=== PATIENT | female | born 1935 | race African-American/Black ===

== ENCOUNTER 2017-06-30 16:41 | Emergency (ER) | payer MEDICARE, BC ==
[2017-06-30] MEDS ORDERED: NORMAL SALINE 1000 ML 500 ML IV ONE (19:13)
--- NOTE | 2017-06-30 19:30 | ER Document Report ---
ED Blood Sugar Problem - General Mode of Arrival: Ambulatory Information source: Patient TRAVEL OUTSIDE OF THE [place] IN LAST 30 DAYS: No <CAROL ANN CERVANTES - Last Filed: 06/30/17 21:22> <JUANRLOANDO Jordan - Last Filed: 06/30/17 21:29> - General Chief Complaint: High Blood Sugar Stated Complaint: BLOOD SUGAR ISSUES Time Seen by Provider: 06/30/17 18:59 Notes: Patient is an 82 year old female with a history of diabetes was sent to the emergency room by her PCP due to high blood sugar. Patient states her PCP increased her Januvia today but states she has been unable to take it. Patient states she has been recently having chills and just recently got over the flu. At bedside patients blood glucose level was 407. (CAROL ANN CERVANTES) - Related Data Allergies/Adverse Reactions: Influenza Virus Vaccines [Influenza Virus Vaccine] Adverse Reaction (Verified 15:17) Past Medical History - General Information source: Patient - Social History Smoking Status: Never Smoker Chew tobacco use (# tins/day): No Frequency of alcohol use: None Drug Abuse: None Family History: Reviewed & Not Pertinent Patient has suicidal ideation: No Patient has homicidal ideation: No - Past Medical History Cardiac Medical History: Reports: Hx Hypertension - MEDICATIONS UPDATED Denies: Hx Heart Attack Pulmonary Medical History: Denies: Hx Asthma Neurological Medical History: Denies: Hx Cerebrovascular Accident, Hx Seizures Endocrine Medical History: Reports: Hx Diabetes Mellitus Type 2 Renal/ Medical History: Denies: Hx Peritoneal Dialysis GI Medical History: Denies: Hx Hepatitis, Hx Hiatal Hernia, Hx Ulcer Infectious Medical History: Denies: Hx Hepatitis Past Surgical History: Reports: Hx Tubal Ligation. Denies: Hx Hysterectomy, Hx Mastectomy, Hx Open Heart Surgery, Hx Pacemaker <CAROL ANN CERVANTES - Last Filed: 06/30/17 21:22> Review of Systems - Review of Systems Constitutional: See HPI, Chills EENT: No symptoms reported Cardiovascular: No symptoms reported Respiratory: No symptoms reported Gastrointestinal: No symptoms reported Genitourinary: No symptoms reported Female Genitourinary: No symptoms reported Musculoskeletal: No symptoms reported Skin: No symptoms reported Hematologic/Lymphatic: No symptoms reported Neurological/Psychological: No symptoms reported -: Yes All other systems reviewed and negative <CAROL ANN CERVANTES - Last Filed: 06/30/17 21:22> Physical Exam <CAROL ANN CERVANTES - Last Filed: 06/30/17 21:22> <ROLANDO MARTINEZ - Last Filed: 06/30/17 21:29> - Vital signs Vitals: Temp Pulse BP Pulse Ox 97.9 F 64 177/65 H 96 06/30/17 17:09 06/30/17 17:09 06/30/17 17:09 06/30/17 17:09 - Notes Notes: GENERAL: Alert, interacts well. No acute distress. HEAD: Normocephalic, atraumatic. EYES: Appear normal. Pupils equal, round, and reactive to light. ENT: Moist mucus membranes, tongue midline. NECK: Full range of motion. Supple. Trachea midline. LUNGS: Clear to auscultation bilaterally, no wheezes, rales, or rhonchi. No respiratory distress. HEART: Regular rate and rhythm. No murmurs, gallops, or rubs. EXTREMITIES: Moves all 4 extremities spontaneously. Normal strength. No edema. NEUROLOGICAL: Alert and oriented x3. Normal speech. PSYCH: Normal affect, normal mood. SKIN: Warm, dry, normal turgor. No rashes or lesions noted. (CAROL ANN CERVANTES) Course - Laboratory Result Diagrams: 06/30/17 20:20 06/30/17 20:20 <CAROL ANN CERVANTES - Last Filed: 06/30/17 21:22> - Laboratory Result Diagrams: 06/30/17 20:20 06/30/17 20:20 <ROLANDO MARTINEZ - Last Filed: 06/30/17 21:29> - Re-evaluation Re-evalutation: 06/30/17 21:26 Patient CMP was hemolyzed and had to be redrawn. Pending CMP that will be reviewed by mid-level patient will be discharged after CMP is reviewed with flex for urinary tract infection. Discussed with patient to follow-up with primary care physician in 1 week for reevaluation. She was found to be hyperglycemic but likely has been a chronic issue due to her HbA1c of 12.8 with paperwork brought to emergency department today from primary care provider (ROLANDO MARTINEZ) - Vital Signs Vital signs: Temp Pulse Resp BP Pulse Ox 97.9 F 64 177/65 H 96 06/30/17 17:09 06/30/17 17:09 06/30/17 17:09 06/30/17 17:09 - Laboratory Laboratory results interpreted by me: 06/30/17 20:20 Urine Glucose (UA) >=500 H Urine Nitrite POSITIVE H Ur Leukocyte Esterase MODERATE H Discharge <CAROL ANN CERVANTES - Last Filed: 06/30/17 21:22> <ROLANDO MARTINEZ - Last Filed: 06/30/17 21:29> - Discharge Clinical Impression: Hyperglycemia Urinary tract infection Qualifiers: Urinary tract infection type: site unspecified Hematuria presence: without hematuria Qualified Code(s): N39.0 - Urinary tract infection, site not specified Condition: Good Disposition: HOME, SELF-CARE Instructions: Cephalexin ([facility]), Urinary Tract Infection ([facility]) Additional Instructions: Please start taking her blood sugar with your glucometer and create a log to provide to your primary care doctor and follow-up with them in 1 week for reevaluation. Please take antibiotics as prescribed for your diagnosis urinary tract infection. Prescriptions: Cephalexin Monohydrate [Keflex 500 mg Capsule] 500 mg PO Q6H 5 Days capsule Scribe Documentation - Scribe Written by Hugh:: Hugh Thurman, 06/30/2017 19:42 acting as scribe for :: Juan <CAROL ANN CERVANTES - Last Filed: 06/30/17 21:22>
[2017-06-30 20:34] LABS: APPEARANCE,URINE SLIGHTLY-CLOUDY; BILIRUBIN,URINE NEGATIVE (NEGATIVE); COLOR,URINE YELLOW; GLUCOSE, URINE >=500 mg/dL (NEGATIVE); KETONES,URINE NEGATIVE (NEGATIVE); LEUKOCYTE ESTERASE,URINE MODERATE (NEGATIVE); NITRITE,URINE POSITIVE (NEGATIVE); PROTEIN,URINE NEGATIVE (NEGATIVE); URINE SPECIFIC GRAVITY 1.028; UROBILINOGEN,URINE NEGATIVE mg/dL (<2.0)
[2017-06-30 20:36] LABS: ABSOLUTE BASOPHILS # (AUTO) 0.1 10^3/uL (0.0-0.2); ABSOLUTE EOSINOPHILS # (AUTO) 0.1 10^3/uL (0.0-0.6); ABSOLUTE MONOCYTES (AUTO) 0.6 10^3/uL (0.1-1.4); ABSOLUTE NEUT (AUTO) 4.6 10^3/uL (1.7-8.2); BASOPHILS % (AUTO) 0.9 % (0-2); EOSINOPHILS % (AUTO) 1.1 % (0-6); HEMATOCRIT 43.6 % (36.0-47.0); HEMOGLOBIN 14.6 g/dL (12.0-15.5); LYMPHOCYTES % (AUTO) 27.5 % (13-45); MEAN CORPUSCULAR HEMOGLOBIN 31.1 pg (27.0-33.4); MEAN CORPUSCULAR HGB CONC 33.4 g/dL (32.0-36.0); MEAN CORPUSCULAR VOLUME 93 fl (80-97); PLATELET COUNT 155 10^3/uL (150-450); RED BLOOD COUNT 4.69 10^6/uL (3.72-5.28); RED CELL DISTRIBUTION WIDTH 12.7 % (11.5-14.0); SEGMENTED NEUTROPHILS % (AUTO) 62.5 % (42-78); TOTAL CELLS COUNTED % (AUTO) 100 %; WHITE BLOOD COUNT 7.3 10^3/uL (4.0-10.5)
--- NOTE | 2017-06-30 20:46 | RADIOLOGY REPORT (SQ) ---
EXAM DESCRIPTION: CHEST SINGLE VIEW COMPLETED DATE/TIME: 06/30/2017 8:30 pm REASON FOR STUDY: cough COMPARISON: 04/30/2015 EXAM PARAMETERS: NUMBER OF VIEWS: One view. TECHNIQUE: Single frontal radiographic view of the chest acquired. RADIATION DOSE: NA LIMITATIONS: None. FINDINGS: LUNGS AND PLEURA: No acute opacities, masses or pneumothorax. No pleural effusion. MEDIASTINUM AND HILAR STRUCTURES: Stable. HEART AND VASCULAR STRUCTURES: Heart normal in size. Normal vasculature. BONES: No acute findings. HARDWARE: None in the chest. OTHER: No other significant finding. IMPRESSION: NO ACUTE RADIOGRAPHIC FINDING IN THE CHEST. TECHNICAL DOCUMENTATION: JOB ID: [id number] [employer]- All Rights Reserved
[2017-06-30 22:52] LABS: ALANINE AMINOTRANSFERASE 29 U/L (9-52); ALBUMIN 4.6 g/dL (3.5-5.0); ALKALINE PHOSPHATASE 81 U/L (38-126); ANION GAP 10 (5-19); ASPARTATE AMINO TRANSFERASE 19 U/L (14-36); BILIRUBIN,DIRECT 0.3 mg/dL (0.0-0.4); BILIRUBIN,TOTAL 0.6 mg/dL (0.2-1.3); BLOOD UREA NITROGEN 20 mg/dL (7-20); CALCIUM 10.3 mg/dL (8.4-10.2); CARBON DIOXIDE 25 mmol/L (22-30); CHLORIDE 103 mmol/L (98-107); GLUCOSE 338 mg/dL (75-110); POTASSIUM 4.4 mmol/L (3.6-5.0); SODIUM 137.6 mmol/L (137-145); TOTAL PROTEIN 7.6 g/dL (6.3-8.2)
[2017-06-30 23:18] VITALS: BP 157/64
== END 2017-06-30 23:19 | disposition home or self-care (01) ==
LOC: ER 16:41
DX: N39.0 Urinary tract infection, site not specified (principal); E11.65 Type 2 diabetes mellitus with hyperglycemia
CPT/HCPCS: 36415; 71045; 80053; 81001; 82962; 83735; 85025; 99285

== ENCOUNTER 2018-03-01 16:58 | Emergency (ER) | payer MEDICARE, BC ==
--- NOTE | 2018-03-01 17:14 | ER Document Report ---
ED Medical Screen (RME) - General Chief Complaint: Nausea/Vomiting/Diarrhea Stated Complaint: VOMITING, STOMACH PAIN Time Seen by Provider: 03/01/18 17:10 Mode of Arrival: Wheelchair Information source: Patient, [facility] Records Notes: 82-year-old female with reflux, type 2 diabetes, hypertension presents with complaint of nausea, vomiting, diarrhea and abdominal pain that started 1 day prior to arrival. I have greeted and performed a rapid initial assessment of this patient. A comprehensive ED assessment and evaluation of the patient, analysis of test results and completion of medical decision making process we will be contacted by additional ED providers. PHYSICAL EXAMINATION: GENERAL: Well-appearing, well-nourished and in no acute distress. HEAD: Atraumatic, normocephalic. EYES: Pupils equal round extraocular movements intact, conjunctiva are normal. ENT: Nares patent NECK: Normal range of motion LUNGS: No respiratory distress Musculoskeletal: Normal range of motion NEUROLOGICAL: Normal speech, normal gait. PSYCH: Normal mood, normal affect. SKIN: Warm, Dry, normal turgor, no rashes or lesions noted. TRAVEL OUTSIDE OF THE [place] IN LAST 30 DAYS: No - HPI Onset: Yesterday Onset/Duration: Gradual, Persistent Quality of pain: Achy Severity: Mild Associated Symptoms: Body/muscle aches, Diarrhea, Nausea, Vomiting Exacerbated by: Denies Relieved by: Denies Similar symptoms previously: No Recently seen / treated by doctor: No - Related Data Smoking: Non-smoker Frequency of alcohol use: None Drug Abuse: None Allergies/Adverse Reactions: Influenza Virus Vaccines [Influenza Virus Vaccine] Adverse Reaction (Verified 14:27) Past Medical History - Past Medical History Cardiac Medical History: Reports: Hx Hypertension - MEDICATIONS UPDATED Denies: Hx Heart Attack Pulmonary Medical History: Denies: Hx Asthma Neurological Medical History: Denies: Hx Cerebrovascular Accident, Hx Seizures Endocrine Medical History: Reports: Hx Diabetes Mellitus Type 2 Renal/ Medical History: Denies: Hx Peritoneal Dialysis GI Medical History: Denies: Hx Hepatitis, Hx Hiatal Hernia, Hx Ulcer Infectious Medical History: Denies: Hx Hepatitis Past Surgical History: Reports: Hx Tubal Ligation. Denies: Hx Hysterectomy, Hx Mastectomy, Hx Open Heart Surgery, Hx Pacemaker Physical Exam - Vital signs Vitals: Temp Pulse Resp BP Pulse Ox 98.1 F 76 18 141/114 H 99 03/01/18 17:05 03/01/18 17:05 03/01/18 17:05 03/01/18 17:05 03/01/18 17:05 Course - Vital Signs Vital signs: Temp Pulse Resp BP Pulse Ox 98.1 F 76 18 141/114 H 99 03/01/18 17:05 03/01/18 17:05 03/01/18 17:05 03/01/18 17:05 03/01/18 17:05
[2018-03-01] MEDS ORDERED: ONDANSETRON HCL INJ/PF 4 MG/2 ML SDV IV ONE (17:15)
[2018-03-01 18:52] LABS: ABSOLUTE LYMPHOCYTES (AUTO) 0.6 10^3/uL (0.5-4.7); ABSOLUTE MONOCYTES (AUTO) 0.2 10^3/uL (0.1-1.4); ABSOLUTE NEUT (AUTO) 5.4 10^3/uL (1.7-8.2); BASOPHILS % (AUTO) 0.6 % (0-2); EOSINOPHILS % (AUTO) 0.6 % (0-6); HEMATOCRIT 37.6 % (36.0-47.0); HEMOGLOBIN 12.9 g/dL (12.0-15.5); LYMPHOCYTES % (AUTO) 9.7 % (13-45); MEAN CORPUSCULAR HEMOGLOBIN 32.3 pg (27.0-33.4); MEAN CORPUSCULAR HGB CONC 34.2 g/dL (32.0-36.0); MEAN CORPUSCULAR VOLUME 94 fl (80-97); MONOCYTES % (AUTO) 3.1 % (3-13); PLATELET COUNT 130 10^3/uL (150-450); RED CELL DISTRIBUTION WIDTH 12.6 % (11.5-14.0); TOTAL CELLS COUNTED % (AUTO) 100 %; WHITE BLOOD COUNT 6.3 10^3/uL (4.0-10.5)
[2018-03-01 19:12] LABS: ALANINE AMINOTRANSFERASE 31 U/L (9-52); ALKALINE PHOSPHATASE 76 U/L (38-126); ANION GAP 10 (5-19); ASPARTATE AMINO TRANSFERASE 18 U/L (14-36); BILIRUBIN,DIRECT 0.2 mg/dL (0.0-0.4); BILIRUBIN,TOTAL 0.6 mg/dL (0.2-1.3); BLOOD UREA NITROGEN 13 mg/dL (7-20); CALCIUM 9.8 mg/dL (8.4-10.2); CARBON DIOXIDE 27 mmol/L (22-30); CHLORIDE 102 mmol/L (98-107); GLUCOSE 315 mg/dL (75-110); LIPASE 34.5 U/L (23-300); POTASSIUM 4.1 mmol/L (3.6-5.0); SODIUM 139.1 mmol/L (137-145); TOTAL PROTEIN 7.1 g/dL (6.3-8.2)
[2018-03-01] MEDS ORDERED: NORMAL SALINE 1000 ML 1,000 ML IV ONE (19:20)
--- NOTE | 2018-03-01 20:53 | ER Document Report ---
ED General - General Chief Complaint: Nausea/Vomiting/Diarrhea Stated Complaint: VOMITING, STOMACH PAIN Time Seen by Provider: 03/01/18 17:10 Mode of Arrival: Wheelchair TRAVEL OUTSIDE OF THE [place] IN LAST 30 DAYS: No - HPI Patient complains to provider of: Abdominal pain Onset: Other - 82-year-old female presents for evaluation of crampy abdominal pain with an episode of vomiting today that she notes is as a result likely from eating some food which did not agree with her. She denies fevers or chills , does endorse some loose bowel movements. Denies any chest pain shortness of breath or other symptoms. Denies any rashes has never had these symptoms in the past nothing is made them better or worse. - Related Data Allergies/Adverse Reactions: Influenza Virus Vaccines [Influenza Virus Vaccine] Adverse Reaction (Verified 14:27) Past Medical History - General Information source: Patient, [facility] Records - Social History Smoking Status: Never Smoker Frequency of alcohol use: None Drug Abuse: None Family History: Reviewed & Not Pertinent Patient has suicidal ideation: No Patient has homicidal ideation: No - Past Medical History Cardiac Medical History: Reports: Hx Hypertension - MEDICATIONS UPDATED Denies: Hx Heart Attack Pulmonary Medical History: Denies: Hx Asthma Neurological Medical History: Denies: Hx Cerebrovascular Accident, Hx Seizures Endocrine Medical History: Reports: Hx Diabetes Mellitus Type 2 Renal/ Medical History: Denies: Hx Peritoneal Dialysis GI Medical History: Denies: Hx Hepatitis, Hx Hiatal Hernia, Hx Ulcer Infectious Medical History: Denies: Hx Hepatitis Past Surgical History: Reports: Hx Tubal Ligation. Denies: Hx Hysterectomy, Hx Mastectomy, Hx Open Heart Surgery, Hx Pacemaker Review of Systems - Review of Systems -: Yes All other systems reviewed and negative Physical Exam - Vital signs Vitals: Temp Pulse Resp BP Pulse Ox 98.1 F 76 18 141/114 H 99 03/01/18 17:05 03/01/18 17:05 03/01/18 17:05 03/01/18 17:05 03/01/18 17:05 - General General appearance: Appears well In distress: None - HEENT Head: Normocephalic Eyes: Normal Conjunctiva: Normal Cornea: Normal Extraocular movements intact: Yes Eyelashes: Normal Pupils: PERRL - Respiratory Respiratory status: No respiratory distress Chest status: Nontender Breath sounds: Normal Chest palpation: Normal - Cardiovascular Rhythm: Regular Heart sounds: Normal auscultation Murmur: No - Abdominal Inspection: Normal Distension: No distension Tenderness: Nontender Organomegaly: No organomegaly - Back Back: Normal - Extremities General upper extremity: Normal inspection, Nontender, Normal ROM, Normal strength General lower extremity: Normal inspection, Nontender, Normal ROM, Normal strength - Neurological Neuro grossly intact: Yes Cognition: Normal Orientation: AAOx4 Beatrice Coma Scale Eye Opening: Spontaneous Beatrice Coma Scale Verbal: Oriented [place]den Coma Scale Motor: Obeys Commands Beatrice Coma Scale Total: 15 Speech: Normal Cranial nerves: Normal Cerebellar coordination: Normal Motor strength normal: LUE, RUE, LLE, RLE - Psychological Associated symptoms: Normal affect Course - Re-evaluation Re-evalutation: 03/02/18 03:29 This generally healthy 82-year-old woman presents for evaluation of crampy abdominal pain in the setting of some loose bowel movements and nausea. She and her abdominal exam is nondiagnostic without any focal rebound or guarding. She is overall well-appearing but given her age and risk factors will plan for CT of the abdomen and pelvis. Labs are relatively unimpressive, her CBC is unremarkable. CT the abdomen and pelvis does not demonstrate any obvious abnormality for this patient in the abdomen and pelvis accounting for crampy abdominal pain. On reassessment however she notes that she is feeling much better at this time. She has been able to tolerate p.o. in the emergency department and feels as if she is ready to go home. Current plan will be for this patient undergo discharge with return precautions as I do not believe this represents a more serious intra-abdominal process such as but not limited to cholecystitis appendicitis abdominal catastrophe or bowel ischemia. - Vital Signs Vital signs: Temp Pulse Resp BP Pulse Ox 98.1 F 81 17 139/91 H 97 03/01/18 17:05 03/01/18 23:38 03/01/18 23:38 03/01/18 23:38 03/01/18 23:38 - Laboratory Result Diagrams: 03/01/18 18:40 03/01/18 18:40 Laboratory results interpreted by me: 03/01/18 03/01/18 18:40 18:40 Plt Count 130 L Seg Neutrophils % 86.0 H Lymphocytes % 9.7 L Glucose 315 H Discharge - Discharge Clinical Impression: Nausea Abdominal pain Qualifiers: Abdominal location: generalized Qualified Code(s): R10.84 - Generalized abdominal pain Condition: Good Disposition: HOME, SELF-CARE Instructions: Abdominal Pain ([facility]), Antinausea Medication ([facility]) Additional Instructions: You were seen today in the emergency room for your abdominal pain and vomiting, urine evaluation including a physical exam and CAT scan and blood tests. Use the nausea medication as needed for your symptoms. Return for worsening fevers, chills, abdominal pain, inability to eat or drink. Forms: Elevated Blood Pressure
--- NOTE | 2018-03-01 22:28 | RADIOLOGY REPORT (SQ) ---
PROCEDURE: CT OF THE ABDOMEN AND PELVIS WITH INTRAVENOUS CONTRAST HISTORY: Right lower quadrant pain. Evaluation for acute appendicitis Indication: Same as above Comparison: None . Technique: The study was done on 03/01/2018 at 9:[address] of the abdomen and pelvis was done with intravenous contrast. Images were obtained from the lung base to the level of the pubic symphysis in axial plane, followed by orthogonal sagittal and coronal reconstruction. Oral contrast was not given for the study. The patient was injected with radiographic contrast intravenously, without any documented immediate adverse reactions. This exam was performed according to our departmental dose-optimization program, which includes automated exposure control, adjustment of the mA and/or KV according to the patient's size and/or use of iterative reconstruction technique. FINDINGS: Images through the lung bases do not show any focal infiltrates or pleural effusions. There is presence of a filling defect in the lumen of the gallbladder suspicious for cholelithiasis. A normal or inflamed appendix is not seen. There is no pericecal inflammatory change. The ileocecal junction is unremarkable. An anteverted uterus is seen with presence of small amount of fluid in the endometrial canal. Few subcentimeter calcified fibroids are also seen in the fundal region of the uterus The liver, pancreas, spleen and the bilateral adrenal glands appear unremarkable. The bilateral kidneys enhance with contrast in a normal fashion. The urinary bladder is unremarkable . The bilateral ureters and the bilateral periureteral soft tissues and fat planes are unremarkable. 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 There is no CT evidence of acute colonic diverticulitis or colitis or large bowel obstruction. The splenic and portal veins are of normal caliber, without any filling defects. There is no pathological lymphadenopathy in the retroperitoneum or in the pelvic region. There is no evidence of free fluid or free air in the abdomen or the pelvic region. There is no clinically significant abdominal aortic aneurysm. There is no clinically significant inguinal or ventral hernia. The visualized lumbar spine shows multilevel degenerative change . The paravertebral soft tissues are unremarkable. The remainder of the pelvic structures are unremarkable. IMPRESSION: There is presence of a filling defect in the lumen of the gallbladder suspicious for cholelithiasis. A normal or inflamed appendix is not seen. There is no pericecal inflammatory change. The ileocecal junction is unremarkable. An anteverted uterus is seen with presence of small amount of fluid in the endometrial canal, unusual at the patient's age. Few subcentimeter calcified fibroids are also seen in the fundal region of the uterus. These findings can be electively evaluated with an ultrasound of the pelvis Location of Interpretation: Teleradiology
[2018-03-01] MEDS ORDERED: ONDANSETRON ODT 4 MG TAB (6 TAB/ER DISP) PO PRN (23:16)
[2018-03-01 23:40] VITALS: BP 139/91
== END 2018-03-01 23:38 | disposition home or self-care (01) ==
LOC: ER 16:58
DX: R11.2 Nausea with vomiting, unspecified (principal); R10.84 Generalized abdominal pain; R19.7 Diarrhea, unspecified; E11.9 Type 2 diabetes mellitus without complications; Z98.51 Tubal ligation status
CPT/HCPCS: 99284; 96361; 96374; 36415; 83690; 85025; 80053; 74177; J2405; A9270

== ENCOUNTER 2018-05-05 12:19 | Emergency (ER) | payer MEDICARE, BC ==
[2018-05-05 12:58] LABS: ABSOLUTE BASOPHILS # (AUTO) 0.1 10^3/uL (0.0-0.2); ABSOLUTE EOSINOPHILS # (AUTO) 0.1 10^3/uL (0.0-0.6); ABSOLUTE LYMPHOCYTES (AUTO) 1.1 10^3/uL (0.5-4.7); ABSOLUTE MONOCYTES (AUTO) 0.5 10^3/uL (0.1-1.4); ABSOLUTE NEUT (AUTO) 8.5 10^3/uL (1.7-8.2); BASOPHILS % (AUTO) 0.5 % (0-2); EOSINOPHILS % (AUTO) 0.7 % (0-6); HEMATOCRIT 42.1 % (36.0-47.0); HEMOGLOBIN 14.6 g/dL (12.0-15.5); LYMPHOCYTES % (AUTO) 10.4 % (13-45); MEAN CORPUSCULAR HEMOGLOBIN 32.2 pg (27.0-33.4); MEAN CORPUSCULAR HGB CONC 34.6 g/dL (32.0-36.0); MEAN CORPUSCULAR VOLUME 93 fl (80-97); MONOCYTES % (AUTO) 4.5 % (3-13); PLATELET COUNT 130 10^3/uL (150-450); RED BLOOD COUNT 4.53 10^6/uL (3.72-5.28); RED CELL DISTRIBUTION WIDTH 12.2 % (11.5-14.0); SEGMENTED NEUTROPHILS % (AUTO) 83.9 % (42-78); TOTAL CELLS COUNTED % (AUTO) 100 %; WHITE BLOOD COUNT 10.1 10^3/uL (4.0-10.5)
[2018-05-05 13:23] LABS: ALANINE AMINOTRANSFERASE 18 U/L (9-52); ALBUMIN 4.5 g/dL (3.5-5.0); ALKALINE PHOSPHATASE 95 U/L (38-126); ANION GAP 12 (5-19); ASPARTATE AMINO TRANSFERASE 42 U/L (14-36); BILIRUBIN,DIRECT 0.1 mg/dL (0.0-0.4); BILIRUBIN,TOTAL 0.9 mg/dL (0.2-1.3); BLOOD UREA NITROGEN 21 mg/dL (7-20); CALCIUM 10.1 mg/dL (8.4-10.2); CARBON DIOXIDE 28 mmol/L (22-30); CHLORIDE 98 mmol/L (98-107); GLUCOSE 339 mg/dL (75-110); POTASSIUM 4.5 mmol/L (3.6-5.0); SODIUM 137.9 mmol/L (137-145)
[2018-05-05] MEDS ORDERED: NORMAL SALINE 1000 ML 1,000 ML IV ONE ×2 (14:31→16:38)
[2018-05-05] MEDS ORDERED: ONDANSETRON HCL INJ/PF 4 MG/2 ML SDV IV ONE (14:32)
[2018-05-05 15:12] LABS: APPEARANCE,URINE CLEAR; BILIRUBIN,URINE NEGATIVE (NEGATIVE); COLOR,URINE COLORLESS; GLUCOSE, URINE >=500 mg/dL (NEGATIVE); KETONES,URINE 20 mg/dL (NEGATIVE); LEUKOCYTE ESTERASE,URINE NEGATIVE (NEGATIVE); NITRITE,URINE NEGATIVE (NEGATIVE); PROTEIN,URINE NEGATIVE (NEGATIVE); URINE SPECIFIC GRAVITY 1.015; UROBILINOGEN,URINE NEGATIVE mg/dL (<2.0)
--- NOTE | 2018-05-05 15:16 | RADIOLOGY REPORT (SQ) ---
EXAM DESCRIPTION: CHEST SINGLE VIEW COMPLETED DATE/TIME: 05/05/2018 3:07 pm REASON FOR STUDY: cough COMPARISON: 06/30/2017 EXAM PARAMETERS: NUMBER OF VIEWS: One view. TECHNIQUE: Single frontal radiographic view of the chest acquired. RADIATION DOSE: NA LIMITATIONS: None. FINDINGS: LUNGS AND PLEURA: No opacities, masses or pneumothorax. No pleural effusion. MEDIASTINUM AND HILAR STRUCTURES: No masses. Contour normal. HEART AND VASCULAR STRUCTURES: Heart normal in size. Normal vasculature. BONES: No acute findings. HARDWARE: None in the chest. OTHER: No other significant finding. IMPRESSION: NO ACUTE RADIOGRAPHIC FINDING IN THE CHEST. TECHNICAL DOCUMENTATION: JOB ID: [id number] [employer]- All Rights Reserved Reading location - IP/workstation name: [email or web address]
[2018-05-05] MEDS ORDERED: ACETAMINOPHEN 325 MG TABLET PO ONE (17:07)
--- NOTE | 2018-05-05 17:48 | ER Document Report ---
ED GI/ - General Chief Complaint: Nausea/Vomiting/Diarrhea Stated Complaint: NAUSEA, VOMITING Time Seen by Provider: 05/05/18 14:27 Mode of Arrival: Wheelchair Information source: Patient, Relative Notes: Patient is an 83-year-old female comes emergency room complaining of nausea vomiting diarrhea she states that her stomach started hurting when she got up this morning. After she got up she ate some cereal which was "Cheerios". She says then she went back and lay down and a few minutes later she got him started vomiting. After she started with the vomiting she had several bouts of diarrhea as well. And she became weak so she came to the emergency room to get checked out. Patient has a history of diabetes and hypertension. She denies any shortness of breath or chest pain. She denies any urinary symptoms. She denies any fever. She also denies any real abdominal pain or discomfort it just feels like her stomach is upset. TRAVEL OUTSIDE OF THE [place] IN LAST 30 DAYS: No - HPI Patient complains to provider of: Diarrhea, Vomiting Onset: This morning Timing/Duration: Sudden, Worse Quality of pain: Achy Severity at maximum: Moderate Severity in ED: Moderate Pain Level: 2 Sexual history: Inactive Associated symptoms: Chills, Diarrhea, Nausea, Vomiting. denies: Fever, Syncope Exacerbated by: Food Relieved by: Denies Similar symptoms previously: No Recently seen / treated by doctor: No - Related Data Allergies/Adverse Reactions: Influenza Virus Vaccines [Influenza Virus Vaccine] Adverse Reaction (Verified 12:26) Past Medical History - General Information source: Patient - Social History Smoking Status: Never Smoker Cigarette use (# per day): No Chew tobacco use (# tins/day): No Smoking Education Provided: No Frequency of alcohol use: None Drug Abuse: None Family History: Reviewed & Not Pertinent Patient has suicidal ideation: No Patient has homicidal ideation: No - Past Medical History Cardiac Medical History: Reports: Hx Hypercholesterolemia, Hx Hypertension - MEDICATIONS UPDATED Denies: Hx Heart Attack Pulmonary Medical History: Denies: Hx Asthma Neurological Medical History: Denies: Hx Cerebrovascular Accident, Hx Seizures Endocrine Medical History: Reports: Hx Diabetes Mellitus Type 2 Renal/ Medical History: Denies: Hx Peritoneal Dialysis GI Medical History: Denies: Hx Hepatitis, Hx Hiatal Hernia, Hx Ulcer Infectious Medical History: Denies: Hx Hepatitis Past Surgical History: Reports: Hx Tubal Ligation. Denies: Hx Hysterectomy, Hx Mastectomy, Hx Open Heart Surgery, Hx Pacemaker Review of Systems - Review of Systems Constitutional: See HPI, Malaise EENT: No symptoms reported Cardiovascular: No symptoms reported Respiratory: No symptoms reported Gastrointestinal: See HPI, Diarrhea, Nausea, Vomiting Genitourinary: No symptoms reported Female Genitourinary: No symptoms reported Musculoskeletal: No symptoms reported Skin: No symptoms reported Hematologic/Lymphatic: No symptoms reported Neurological/Psychological: No symptoms reported -: Yes All other systems reviewed and negative Physical Exam - Vital signs Vitals: Temp Pulse Resp BP Pulse Ox 97.2 F 66 16 171/61 H 99 05/05/18 12:23 05/05/18 12:23 05/05/18 12:23 05/05/18 12:23 05/05/18 12:23 Interpretation: Hypertensive - Notes Notes: PHYSICAL EXAMINATION: GENERAL: Patient is a well-nourished well-developed 83-year-old female who is in no apparent distress today on physical exam. She does display some discomfort on not feeling well. She is not diaphoretic, not clammy. HEAD: Atraumatic, normocephalic. EYES: Pupils equal round and reactive to light, extraocular movements intact, conjunctiva are normal. ENT: Nares patent, oropharynx clear without exudates. Moist mucous membranes. NECK: Normal range of motion, supple without lymphadenopathy LUNGS: Breath sounds clear to auscultation bilaterally and equal. No wheezes rales or rhonchi. HEART: Regular rate and rhythm without murmurs ABDOMEN: Soft, nontender, nondistended abdomen. No guarding, no rebound. No masses appreciated. Bowel sounds are appreciated in all 4 quads. She is not hyperactive. Normal sounding and interval bowel sounds Female : deferred Musculoskeletal: Normal range of motion, no pitting or edema. No cyanosis. NEUROLOGICAL: Normal speech, normal gait. Normal sensory, motor exams PSYCH: Normal mood, flat affect. SKIN: Warm, Dry, normal turgor, no rashes or lesions noted. Course - Re-evaluation Re-evalutation: 05/06/18 06:48 After receiving nausea medication the liter of fluid patient pinked up real well. She became more active and more conversational. She was attempted on p.o. challenge and was able to keep everything down. Family showed up and required my attention in the room. The primary daughter stated that her father had just gotten out of the hospital couple days ago and that it was probably too much for her mother to handle and she requested patient be admitted to the hospital. The only real abnormality patient had was her blood sugar was in the 300s. We sit down and went through the last 4 visits that she had here and her blood sugars all ran in the 300s. We went through patient's medications together to the amount of the back when the time and discovered the patient was not taking her glipizide that that had been stopped and that her provider had been supplying her with another antihyperglycemic medication but she really was not aware of the name. She stated that it was because of the cost so much that they were handed to her in the office as much as possible. She was taken 1 pill a day and it was a brown pill. Given that we can pull up prescription is written locally I went in and checked the [facility] in patients prescriptions it did not show any other medications besides the glipizide so I went back and discussed again with and patient kept referring that she can get another prescription of it at the pharmacy she was at so we contacted I contacted the pharmacy in [place]' talked to the pharmacist there and they were able to tell me that one time back in June patient had some Januvia filled. That is one patient claimed was the medication that was being given to her. During our conversation with the family it was evident patient kept repeating herself on types of medications. She kept referring to today as Tuesday and when she was corrected she kept forgetting the she had been corrected and kept thinking today was Tuesday. I had a discussion with the patient family that at this age they are brown to forget things and we are wondering whether patient is taking her medications appropriately. I told him family that is 106 they need to go to the doctor with her and discuss was going on. They may need to patient 's medications in a box on a weekly basis and that where they can monitor whether she is been taking it appropriately or not. I believe part of the problem is patient's not taking her medication accordingly. Daughter actually requested that her mother be admitted to the hospital. I informed her that with just his blood sugar of 300 not in ketoacidosis and holding down fluids that there was no indication for admission. At first she had been a little upset that we cannot do this I explained to her that this is the way the rules are set up and really she does not meet the criteria. So after going through all the pharmacy stuff with her after going through all her medications and after providing suggestions on how to handle the coming future and being responsible for her medical care the family seem to agree with the plan. Patient was discharged home in good condition and holding down fluids and food at the time. - Vital Signs Vital signs: Temp Pulse Resp BP Pulse Ox 97.6 F 68 18 159/65 H 100 05/05/18 19:13 05/05/18 19:13 05/05/18 19:13 05/05/18 19:13 05/05/18 19:13 - Laboratory Result Diagrams: 05/05/18 12:25 05/05/18 12:25 Laboratory results interpreted by me: 05/05/18 05/05/18 05/05/18 12:25 12:25 14:49 Plt Count 130 L Seg Neutrophils % 83.9 H Lymphocytes % 10.4 L Absolute Neutrophils 8.5 H BUN 21 H Glucose 339 H POC Glucose AST 42 H Urine Glucose (UA) >=500 H Urine Ketones 20 H 05/05/18 18:00 Plt Count Seg Neutrophils % Lymphocytes % Absolute Neutrophils BUN Glucose POC Glucose 235 H AST Urine Glucose (UA) Urine Ketones Discharge - Discharge Clinical Impression: Nausea vomiting and diarrhea, Gastroenteritis Hyperglycemia due to type 2 diabetes mellitus Qualifiers: Diabetes mellitus care home insulin use: with intermediate card tender use Qualified Code(s): E11.65 - Type 2 diabetes mellitus with hyperglycemia Condition: Stable Disposition: HOME, SELF-CARE Instructions: Gastroenteritis (adult) ([facility]), Intravenous (IV) Fluids ([facility]), Vomiting ([facility]) Additional Instructions: Home and rest. Keep the fluids going but avoid liquids and foods high in sugar content. Monitor your blood sugars at least 3 times a day and preferably before each meal and set an appointment with your primary doctor for the first of the week with family members there. I have written you a prescription for the Januvia and if you need it you may use it in order to get through the week. Should you have any concerns or problems return to ER for recheck. I am also writing you for some Zofran for nausea and you may take some Imodium over-the- counter as directed on the box for diarrhea. Prescriptions: Ondansetron [Zofran Odt 4 mg Tablet] 1 - 2 tab PO Q4H PRN #15 tab.rapdis PRN Reason: For Nausea/Vomiting Sitagliptin Phosphate [Januvia] 100 mg PO DAILY #30 tablet Forms: Elevated Blood Pressure
[2018-05-05 18:31] LABS: NT PRO BNP 97 pg/mL (<450)
[2018-05-05 18:32] LABS: TROPONIN I < 0.012 ng/mL
[2018-05-05 19:14] VITALS: BP 159/65
--- NOTE | 2018-05-05 19:44 | EKG REPORT ---
SEVERITY:- ABNORMAL ECG - SINUS RHYTHM PROBABLE LEFT ATRIAL ABNORMALITY LVH WITH SECONDARY REPOLARIZATION ABNORMALITY ANTERIOR Q WAVES, POSSIBLY DUE TO LVH : Confirmed by: Pravin Taylor MD 05-May-2018 19:44:18
== END 2018-05-05 19:15 | disposition home or self-care (01) ==
LOC: ER 12:19
DX: K52.9 Noninfective gastroenteritis and colitis, unspecified (principal); E11.65 Type 2 diabetes mellitus with hyperglycemia; R53.81 Other malaise; Z98.51 Tubal ligation status
CPT/HCPCS: 93005; 99284; 96361; 96374; 36415; 82962; 82550; 85025; 80053; 81001; 84484; 83605; 83880; 71045; 93010; A9270; J2405; J7030

== ENCOUNTER 2018-05-10 19:20 | Emergency (ER) | payer OTHER, MEDICARE, BC ==
[2018-05-10] MEDS ORDERED: ACETAMINOPHEN 325 MG TABLET PO ONE (21:04)
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
[2018-05-10 23:27] LABS: APPEARANCE,URINE CLEAR; BILIRUBIN,URINE NEGATIVE (NEGATIVE); COLOR,URINE YELLOW; GLUCOSE, URINE 150 mg/dL (NEGATIVE); KETONES,URINE NEGATIVE (NEGATIVE); LEUKOCYTE ESTERASE,URINE TRACE (NEGATIVE); NITRITE,URINE NEGATIVE (NEGATIVE); PROTEIN,URINE NEGATIVE (NEGATIVE); URINE SPECIFIC GRAVITY 1.009; UROBILINOGEN,URINE NEGATIVE mg/dL (<2.0)
[2018-05-11] LABS: ABSOLUTE BASOPHILS # (AUTO) 0.1 10^3/uL (0.0-0.2); ABSOLUTE EOSINOPHILS # (AUTO) 0.1 10^3/uL (0.0-0.6); ABSOLUTE LYMPHOCYTES (AUTO) 2.2 10^3/uL (0.5-4.7); ABSOLUTE MONOCYTES (AUTO) 0.5 10^3/uL (0.1-1.4); ABSOLUTE NEUT (AUTO) 4.4 10^3/uL (1.7-8.2); BASOPHILS % (AUTO) 1.2 % (0-2); EOSINOPHILS % (AUTO) 1.7 % (0-6); HEMATOCRIT 38.8 % (36.0-47.0); HEMOGLOBIN 13.4 g/dL (12.0-15.5); LYMPHOCYTES % (AUTO) 29.7 % (13-45); MEAN CORPUSCULAR HEMOGLOBIN 32.1 pg (27.0-33.4); MEAN CORPUSCULAR HGB CONC 34.7 g/dL (32.0-36.0); MEAN CORPUSCULAR VOLUME 93 fl (80-97); MONOCYTES % (AUTO) 6.3 % (3-13); PLATELET COUNT 189 10^3/uL (150-450); RED BLOOD COUNT 4.19 10^6/uL (3.72-5.28); RED CELL DISTRIBUTION WIDTH 12.6 % (11.5-14.0); SEGMENTED NEUTROPHILS % (AUTO) 61.1 % (42-78); TOTAL CELLS COUNTED % (AUTO) 100 %; WHITE BLOOD COUNT 7.3 10^3/uL (4.0-10.5)
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
[2018-05-11 01:08] LABS: ALANINE AMINOTRANSFERASE 21 U/L (9-52); ALBUMIN 4.2 g/dL (3.5-5.0); ALKALINE PHOSPHATASE 88 U/L (38-126); ANION GAP 13 (5-19); ASPARTATE AMINO TRANSFERASE 25 U/L (14-36); BILIRUBIN,DIRECT 0.3 mg/dL (0.0-0.4); BILIRUBIN,TOTAL 0.7 mg/dL (0.2-1.3); BLOOD UREA NITROGEN 17 mg/dL (7-20); CARBON DIOXIDE 26 mmol/L (22-30); CHLORIDE 103 mmol/L (98-107); GLUCOSE 222 mg/dL (75-110); POTASSIUM 4.2 mmol/L (3.6-5.0); TOTAL PROTEIN 7.4 g/dL (6.3-8.2)
[2018-05-11 02:35] VITALS: BP 149/79
== END 2018-05-11 02:35 | disposition home or self-care (01) ==
LOC: ER 19:20
DX: S16.1XXA Strain of muscle, fascia and tendon at neck level, initial encounter (principal); R51 Headache; M54.2 Cervicalgia; R07.9 Chest pain, unspecified; R10.32 Left lower quadrant pain; M79.652 Pain in left thigh; M25.562 Pain in left knee; R55 Syncope and collapse; V43.52XA Car driver injured in collision with other type car in traffic accident, initial encounter; I10 Essential (primary) hypertension; E11.9 Type 2 diabetes mellitus without complications; Z88.7 Allergy status to serum and vaccine
CPT/HCPCS: 36415; 70450; 71260; 72125; 74177; 80053; 81001; 85025; 87086; 87088; 87186; 99284

== ENCOUNTER 2019-08-03 17:06 | Emergency (ER) | payer MEDICARE, BC ==
--- NOTE | 2019-08-03 17:46 | ER Document Report ---
ED Medical Screen (RME) - General Chief Complaint: Flu Symptoms Stated Complaint: FLU SYMPTOMS Time Seen by Provider: 08/03/19 17:39 Primary Care Provider: WAYLON YEAGER PA-C [Primary Care Provider] - Follow up as needed Notes: HPI: 84-year-old female with history of hypertension, diabetes, high cholesterol presenting to the emergency department for evaluation of 3 to 4 days of worsening cough, mild shortness of breath. Saw her PCP 2 days ago was told it might be a viral illness. She states the cough has worsened and she feels very tired and worn out. No definite fever but has had chills I have greeted and performed a rapid initial assessment of this patient. A comprehensive ED assessment and evaluation of the patient, analysis of test results and completion of the medical decision making process will be conducted by additional ED providers PHYSICAL EXAMINATION: GENERAL: Well-appearing, well-nourished and in no acute distress. HEAD: Atraumatic, normocephalic. EYES: sclera anicteric, conjunctiva are normal. ENT: Moist mucous membranes. NECK: Normal range of motion LUNGS: Normal work of breathing, lung sounds are slightly decreased bilaterally HEART: 2+ radial pulses bilaterally, regular rate and rhythm ABD: limited by positioning for exam in triage. EXTREMITIES: no pitting or edema. No cyanosis. NEUROLOGICAL: No focal neurological deficits. Moves all extremities spontaneously and on command. PSYCH: Normal mood, normal affect. SKIN: Warm, Dry, normal turgor, no rashes or lesions noted. TRAVEL OUTSIDE OF THE [place] IN LAST 30 DAYS: No - Related Data Allergies/Adverse Reactions: Influenza Virus Vaccines [Influenza Virus Vaccine] Adverse Reaction (Verified 05/10/18 19:21) Past Medical History - Social History Frequency of alcohol use: None Drug Abuse: None - Past Medical History Cardiac Medical History: Reports: Hx Hypercholesterolemia, Hx Hypertension - MEDICATIONS UPDATED Denies: Hx Heart Attack Pulmonary Medical History: Denies: Hx Asthma Neurological Medical History: Denies: Hx Cerebrovascular Accident, Hx Seizures Endocrine Medical History: Reports: Hx Diabetes Mellitus Type 2 Renal/ Medical History: Denies: Hx Peritoneal Dialysis GI Medical History: Denies: Hx Hepatitis, Hx Hiatal Hernia, Hx Ulcer Infectious Medical History: Denies: Hx Hepatitis Past Surgical History: Reports: Hx Tubal Ligation. Denies: Hx Hysterectomy, Hx Mastectomy, Hx Open Heart Surgery, Hx Pacemaker Physical Exam - Vital signs Vitals: Temp Pulse Resp BP Pulse Ox 97.9 F 87 16 168/65 H 97 08/03/19 17:16 08/03/19 17:16 08/03/19 17:16 08/03/19 17:16 08/03/19 17:16 Course - Vital Signs Vital signs: Temp Pulse Resp BP Pulse Ox 97.9 F 87 16 168/65 H 97 08/03/19 17:16 08/03/19 17:16 08/03/19 17:16 08/03/19 17:16 08/03/19 17:16 Doctor's Discharge - Discharge Referrals: WAYLON YEAGER PA-C [Primary Care Provider] - Follow up as needed
--- NOTE | 2019-08-03 18:44 | RADIOLOGY REPORT (SQ) ---
EXAM DESCRIPTION: CHEST 2 VIEWS COMPLETED DATE/TIME: 08/03/2019 6:09 pm REASON FOR STUDY: cough COMPARISON: 05/05/2018 EXAM PARAMETERS: NUMBER OF VIEWS: two views TECHNIQUE: Digital Frontal and Lateral radiographic views of the chest acquired. RADIATION DOSE: NA LIMITATIONS: none FINDINGS: LUNGS AND PLEURA: There is faint opacification in the right mid to lower lung field. MEDIASTINUM AND HILAR STRUCTURES: No masses or contour abnormalities. HEART AND VASCULAR STRUCTURES: Heart normal size. No evidence for failure. BONES: No acute findings. HARDWARE: None in the chest. OTHER: No other significant finding. IMPRESSION: Cannot exclude limited right middle lobe pneumonia. TECHNICAL DOCUMENTATION: JOB ID: [id number] 2010 [employer]- All Rights Reserved Reading location - IP/workstation name: [email or web address]
[2019-08-03 19:15] LABS: APPEARANCE,URINE CLOUDY; BILIRUBIN,URINE NEGATIVE (NEGATIVE); COLOR,URINE YELLOW; GLUCOSE, URINE >=500 mg/dL (NEGATIVE); KETONES,URINE NEGATIVE (NEGATIVE); LEUKOCYTE ESTERASE,URINE MODERATE (NEGATIVE); NITRITE,URINE NEGATIVE (NEGATIVE); PROTEIN,URINE NEGATIVE (NEGATIVE); URINE SPECIFIC GRAVITY 1.023; UROBILINOGEN,URINE NEGATIVE mg/dL (<2.0)
[2019-08-03 19:17] LABS: ABSOLUTE EOSINOPHILS # (AUTO) 0.1 10^3/uL (0.0-0.6); ABSOLUTE LYMPHOCYTES (AUTO) 1.3 10^3/uL (0.5-4.7); ABSOLUTE MONOCYTES (AUTO) 0.5 10^3/uL (0.1-1.4); ABSOLUTE NEUT (AUTO) 3.4 10^3/uL (1.7-8.2); BASOPHILS % (AUTO) 0.7 % (0-2); EOSINOPHILS % (AUTO) 2.6 % (0-6); HEMATOCRIT 38.2 % (36.0-47.0); LYMPHOCYTES % (AUTO) 24.2 % (13-45); MEAN CORPUSCULAR HEMOGLOBIN 32.1 pg (27.0-33.4); MEAN CORPUSCULAR HGB CONC 34.1 g/dL (32.0-36.0); MEAN CORPUSCULAR VOLUME 94 fl (80-97); MONOCYTES % (AUTO) 8.8 % (3-13); PLATELET COUNT 121 10^3/uL (150-450); RED BLOOD COUNT 4.06 10^6/uL (3.72-5.28); RED CELL DISTRIBUTION WIDTH 12.2 % (11.5-14.0); SEGMENTED NEUTROPHILS % (AUTO) 63.7 % (42-78); TOTAL CELLS COUNTED % (AUTO) 100 %; WHITE BLOOD COUNT 5.4 10^3/uL (4.0-10.5)
[2019-08-03 19:33] LABS: ALBUMIN 3.9 g/dL (3.5-5.0); ALKALINE PHOSPHATASE 67 U/L (38-126); ANION GAP 10 (5-19); ASPARTATE AMINO TRANSFERASE 20 U/L (14-36); BILIRUBIN,DIRECT 0.3 mg/dL (0.0-0.4); BILIRUBIN,TOTAL 0.9 mg/dL (0.2-1.3); BLOOD UREA NITROGEN 18 mg/dL (7-20); CALCIUM 9.4 mg/dL (8.4-10.2); CARBON DIOXIDE 28 mmol/L (22-30); CHLORIDE 94 mmol/L (98-107); POTASSIUM 4.4 mmol/L (3.6-5.0); TOTAL PROTEIN 7.1 g/dL (6.3-8.2)
[2019-08-03 19:40] LABS: GLUCOSE 454 mg/dL (75-110)
[2019-08-03 19:46] LABS: NT PRO BNP 114 pg/mL (<450)
[2019-08-03 19:53] LABS: TROPONIN I < 0.012 ng/mL
[2019-08-03] MEDS ORDERED: CEFTRIAXONE 1 GM/D5W RTU 1 GM/50 ML RTUPB IV ONE (20:08)
[2019-08-03] MEDS ORDERED: INSULIN REG, HUMAN 100 UNIT/ML 3 ML VIAL (PYX) SUBCUT ONE (20:08)
[2019-08-03] MEDS ORDERED: NORMAL SALINE 1000 ML 1,000 ML IV ONE (20:08)
[2019-08-03] MEDS ORDERED: AZITHROMYCIN 250 MG TABLET PO ONE (20:09)
--- NOTE | 2019-08-03 20:14 | ER Document Report ---
ED Flu Like - General Chief Complaint: Flu Symptoms Stated Complaint: FLU SYMPTOMS Time Seen by Provider: 08/03/19 17:39 Primary Care Provider: WAYLON YEAGER PA-C [Primary Care Provider] - Follow up in 3-5 days Mode of Arrival: Ambulatory Information source: Patient Notes: 84-year-old female presented to ED for complaint of flulike symptoms for the last 3 to 4 days. She states she is having a wet worsening cough and mild shortness of breath. She states she did go see her PCP yesterday they told her she had a viral illness. She states she is continuing to cough and she feels tired and worn out. She states she has not had any fevers. She states just before coming to the emergency room she went to the OP ate grits mac sausage and pancakes. She was seen in the triage area where blood urine and chest x-ray were completed. Her chemistry shows a sodium of 132.3 her glucose is 454 and when we know the previous hospital visits each time her sugar is elevated. She is spilling greater than 500 glucose in the urine. White count is 5.4. Chest x-ray showed some mild opacity in the right middle lobe and the radiologist read it as cannot exclude pneumonia. Have spoken with Dr. Johnson who recommended treatment of 10 units of insulin subcu a gram of Rocephin 500 of azithromycin and a liter of fluids in the emergency room then discharged home with pres cription for 250 mg of azithromycin for the next 4 days. Patient is to follow- up with her primary care doctor on Tuesday. Patient did verbalize understanding of this treatment plan and agreement. Patient has been ordered a liter of normal saline, 10 units of regular insulin subcutaneous, 500 mg of azithromycin by mouth and a gram of Rocephin IV. TRAVEL OUTSIDE OF THE [place] IN LAST 30 DAYS: No - HPI Onset: Other - 3 to 4 days Timing/Duration: Intermittent Quality of pain: No pain Severity: None Pain Level: Denies Associated symptoms: Nonproductive cough, Other - States she has been feeling tired and weak for the last couple days went to her doctor yesterday continues to cough Similar symptoms previously: Yes Recently seen / treated by doctor: Yes - Related Data Allergies/Adverse Reactions: Influenza Virus Vaccines [Influenza Virus Vaccine] Adverse Reaction (Verified 05/10/18 19:21) Past Medical History - General Information source: Patient - Social History Smoking Status: Never Smoker Frequency of alcohol use: None Drug Abuse: None Lives with: Family Family History: Reviewed & Not Pertinent Patient has suicidal ideation: No Patient has homicidal ideation: No - Past Medical History Cardiac Medical History: Reports: Hx Hypercholesterolemia, Hx Hypertension - MEDICATIONS UPDATED Pulmonary Medical History: Reports: None EENT Medical History: Reports: None Neurological Medical History: Reports: None Endocrine Medical History: Reports: Hx Diabetes Mellitus Type 2 Renal/ Medical History: Reports: None Malignancy Medical History: Reports: None GI Medical History: Reports: None Musculoskeletal Medical History: Reports None Skin Medical History: Reports None Psychiatric Medical History: Reports: None Traumatic Medical History: Reports: None Infectious Medical History: Reports: None Past Surgical History: Reports: Hx Tubal Ligation Review of Systems - Review of Systems Constitutional: Recent illness. denies: Fever EENT: Sinus discharge Respiratory: Cough. denies: Sputum Neurological/Psychological: Other - Tired and weak -: Yes All other systems reviewed and negative Physical Exam - Vital signs Vitals: Temp Pulse Resp BP Pulse Ox 97.9 F 87 16 168/65 H 97 08/03/19 17:16 08/03/19 17:16 08/03/19 17:16 08/03/19 17:16 08/03/19 17:16 Interpretation: Normal - General General appearance: Appears well, Alert - HEENT Head: Normocephalic, Atraumatic Eyes: Normal Pupils: PERRL Ears: Normal External canal: Normal Tympanic membrane: Normal Sinus: Normal Nasal: Purulent discharge, Swelling Mouth/Lips: Normal Mucous membranes: Normal Pharynx: Post nasal drainage Neck: Normal - Respiratory Respiratory status: No respiratory distress. No: Respiratory distress Chest status: Nontender Breath sounds: Normal, Nonproductive cough. No: Rales, Rhonchi, Stridor, Wheezing Chest palpation: Normal - Cardiovascular Rhythm: Regular Heart sounds: Normal auscultation Murmur: No - Abdominal Inspection: Normal Distension: No distension Bowel sounds: Normal Tenderness: Nontender Organomegaly: No organomegaly - Back Back: Normal, Nontender - Extremities General upper extremity: Normal inspection, Nontender, Normal color, Normal ROM, Normal temperature General lower extremity: Normal inspection, Nontender, Normal color, Normal ROM, Normal temperature, Normal weight bearing. No: Ignacio's sign - Neurological Neuro grossly intact: Yes Cognition: Normal Orientation: AAOx4 [place] Coma Scale Eye Opening: Spontaneous [place] Coma Scale Verbal: Oriented [place] Coma Scale Motor: Obeys Commands [place] Coma Scale Total: 15 Speech: Normal Motor strength normal: LUE, RUE, LLE, RLE Sensory: Normal - Psychological Associated symptoms: Normal affect, Normal mood - Skin Skin Temperature: Warm Skin Moisture: Dry Skin Color: Normal Course - Re-evaluation Re-evalutation: 08/04/19 01:08 Treatment was completed as described. Patient states she felt much better after the fluids and IV antibiotics. She was discharged home with prescription for the next 4 days of azithromycin and instructed to follow-up with her primary doctor on Tuesday. Patient's blood sugar did come down to in the 300s. Patient was alert oriented respirations regular nonlabored and speaking in full sentences at discharge. She was discharged home with her . - Vital Signs Vital signs: Temp Pulse Resp BP Pulse Ox 98.5 F 84 14 154/72 H 98 08/03/19 23:36 08/03/19 23:36 08/03/19 23:36 08/03/19 23:36 08/03/19 23:36 - Laboratory Result Diagrams: 08/03/19 18:15 08/03/19 18:15 Laboratory results interpreted by me: 08/03/19 08/03/19 08/03/19 18:15 18:15 18:15 Plt Count 121 L Sodium 132.3 L Chloride 94 L Est GFR (MDRD) Non-Af 53 L Glucose 454 H* POC Glucose Urine Glucose (UA) >=500 H Ur Leukocyte Esterase MODERATE H 08/03/19 21:48 Plt Count Sodium Chloride Est GFR (MDRD) Non-Af Glucose POC Glucose 367 H Urine Glucose (UA) Ur Leukocyte Esterase - Diagnostic Test Radiology reviewed: Image reviewed, Reports reviewed Discharge - Discharge Clinical Impression: Right middle lobe pneumonia Qualifiers: Pneumonia type: due to unspecified organism Qualified Code(s): J18.9 - Pneumonia, unspecified organism Condition: Stable Disposition: HOME, SELF-CARE Additional Instructions: PNEUMONIA: Your examination indicates that you have pneumonia. This is an infection of the lung tissue, usually caused by bacteria or a virus. Symptoms include cough, fever, shaking chills, chest pain, shortness of breath, and coughing up bloody sputum. Treatment for bacterial pneumonia includes rest, antibiotics for 10 to 14 days, increasing your clear liquid intake, a cool mist humidifier at your bedside, and fever medication. Often, a repeat chest X-ray is performed in a few weeks--even if you feel better--to ascertain whether the infection has completely resolved and no underlying lung problem is present. You should call the physician if you develop persistent vomiting, high fever that does not respond to fever medication, increasing shortness of breath, confusion, or lethargy. Also, failure to improve within two to three days is an indication for re-examination. ROCEPHIN: You have been given an injection of an antibiotic called Rocephin (ceftriaxone). Sometimes the injection must be combined with antibiotic pills. For some infections, such as an uncomplicated ear infection, Rocephin provides all the antibiotic that's needed. The antibiotic will be in your body for about two days. For serious infections, we usually repeat doses of Rocephin daily. Side effects are very unusual following a shot. Women may develop vaginal yeast infections, and babies can get yeast (thrush) in the mouth following the use of antibiotics. Contact your physician if you have symptoms with this medication. Allergy to this antibiotic can result in hives, wheezing, faintness, or itching. If symptoms of allergy occur, call the doctor at once. AZITHROMYCIN: Azithromycin (Zithromax) is a broad spectrum antibiotic in the same class as erythromycin. It can treat a variety of bacterial infections, but is most frequently used for respiratory infections. Azithromycin is extremely long-lasting. It accumulates in body tissues and continues to kill bacteria for many days. In order to improve absorption, Azithromycin should be taken at least one hour before or two hours after a meal. It does not have the same strong tendency to upset the stomach as erythromycin and is usually very well tolerated. Patients who have had a rash or other true allergic reactions to erythromycin should not take this medication. Call if you develop gastrointestinal distress, severe diarrhea, rash, hives, itching, or shortness of breath. USE OF ACETAMINOPHEN (Tylenol): Acetaminophen may be taken for pain relief or fever control. It's much safer than aspirin, offering a wider range of "safe" dosages. It is safe during . Some brand names are Tylenol, Panadol, Datril, Anacin 3, Tempra, and Liquiprin. Acetaminophen can be repeated every four hours. The following are maximum recommended dosages: WEIGHT Dose Drops Elixir Chewable(80mg) (LBS.) drprs=droppers tsp=teaspoon 6 40 mg 0.4 ml (1/2) 6-11 80 mg 0.8 ml (full) tsp 1 tab 12-16 120 mg 1 1/2 drprs 3/4 tsp 1 1/2 tabs 17-23 160 mg 2 drprs 1 tsp 2 tabs 24-30 240 mg 3 drprs 1 1/2 tsp 3 tabs 30-35 320 mg 2 tsp 4 tabs 36-41 360 mg 2 1/4 tsp 4 1/2 tabs 42-47 400 mg 2 1/2 tsp 5 tabs 48-53 480 mg 3 tsp 6 tabs 54-59 520 mg 3 1/4 tsp 6 1/2 tabs 60-64 560 mg 3 1/2 tsp 7 tabs 65-70 600 mg 3 3/4 tsp 7 1/2 tabs 71-76 640 mg 4 tsp 8 tabs 77-82 720 mg 4 1/2 tsp 9 tabs 83-88 800 mg 5 tsp 10 tabs >89 pounds or adults 650 mg to 900 mg Acetaminophen can be repeated every four hours. Maximum dose not to exceed 4000 mg a day. These maximum recommended dosages are slightly higher than the dosages written on the product container, but these dosages are very safe and below the toxic dosage for acetaminophen. FOLLOW-UP CARE: If you have been referred to a physician for follow-up care, call the physicians office for an appointment as you were instructed or within the next two days. If you experience worsening or a significant change in your symptoms, notify the physician immediately or return to the Emergency Department at any time for re-evaluation. Prescriptions: Azithromycin 250 mg PO DAILY #4 tablet Forms: Elevated Blood Pressure Referrals: WAYLON YEAGER PA-C [Primary Care Provider] - Follow up in 3-5 days
[2019-08-03 23:37] VITALS: BP 154/72
--- NOTE | 2019-08-04 01:11 | EKG REPORT ---
SEVERITY:- ABNORMAL ECG - SINUS RHYTHM LEFT VENTRICULAR HYPERTROPHY NONSPECIFIC T ABNORMALITIES, INFERIOR LEADS BORDERLINE PROLONGED QT INTERVAL : Confirmed by: Wendie Britton MD 04-Aug-2019 01:10:17
== END 2019-08-03 23:37 | disposition home or self-care (01) ==
LOC: ER 17:06
DX: J18.9 Pneumonia, unspecified organism (principal); R05 Cough; R06.02 Shortness of breath; E78.00 Pure hypercholesterolemia, unspecified; I10 Essential (primary) hypertension; E11.9 Type 2 diabetes mellitus without complications; Z98.51 Tubal ligation status
CPT/HCPCS: 93005; 99284; 96365; 36415; 82962; 85025; 80053; 81001; 84484; 83880; 71046; 93010; A9270 ×2; J7030; J0696; J1815